=== PATIENT | female | born 1930 | race Caucasian/White ===

== ENCOUNTER 2018-04-17 18:17 | Emergency (ER) | payer MEDICARE ==
[~2018-04-17] VITALS: Ht 157.5 cm; Wt 52.0 kg
[2018-04-17] MEDS ORDERED: MELA3TAB66 PO (18:43)
[2018-04-17] MEDS ORDERED: LEVO25TA9 PO (18:43)
[2018-04-17] MEDS ORDERED: ALEN35TA32 PO (18:43)
[2018-04-17] MEDS ORDERED: ONDA4 PO (18:43)
[2018-04-17] MEDS ORDERED: VITAD1000 PO (18:43)
[2018-04-17] MEDS ORDERED: LOPE-162 PO (18:43)
[2018-04-17] MEDS ORDERED: RANI150T7 PO (18:43)
[2018-04-17] MEDS ORDERED: PERCT PO (18:43)
[2018-04-17] MEDS ORDERED: IBUP-2070 PO (18:43)
[2018-04-17] MEDS ORDERED: LORA0.5T2 PO (18:43)
[2018-04-17] MEDS ORDERED: DULO60CA44 PO (18:43)
[2018-04-17] MEDS ORDERED: DSS100 PO (18:43)
[2018-04-17 21:30] VITALS: BP 136/87
== END 2018-04-17 22:57 | disposition home or self-care (01) ==
LOC: EMS 18:19
DX: S09.90XA Unspecified injury of head, initial encounter (principal); M25.512 Pain in left shoulder; M54.9 Dorsalgia, unspecified; F41.9 Anxiety disorder, unspecified; F32.9 Major depressive disorder, single episode, unspecified; E03.9 Hypothyroidism, unspecified; Z79.1 Long term (current) use of non-steroidal anti-inflammatories (NSAID); Z79.899 Other long term (current) drug therapy; W18.09XA Striking against other object with subsequent fall, initial encounter; Y93.89 Activity, other specified; Y92.89 Other specified places as the place of occurrence of the external cause; Y99.8 Other external cause status
CPT/HCPCS: 70450

== ENCOUNTER 2018-05-03 19:29 | Emergency (ER) | payer MEDICARE ==
[~2018-05-03] VITALS: Ht 165.1 cm; Wt 52.7 kg
[~2018-05-03 19:29] MED LIST: ALEN35TA32 PO; DSS100 PO; DULO60CA44 PO; IBUP-2070 PO; LEVO25TA9 PO; LOPE-162 PO; LORA0.5T2 PO; MELA3TAB66 PO; ONDA4 PO; PERCT PO; RANI150T7 PO; VITAD1000 PO
[2018-05-03 21:00] VITALS: BP 157/81
== END 2018-05-03 21:12 | disposition home or self-care (01) ==
LOC: EMS 19:29
DX: S60.212A Contusion of left wrist, initial encounter (principal); S60.052A Contusion of left little finger without damage to nail, initial encounter; F03.90 Unspecified dementia, unspecified severity, without behavioral disturbance, psychotic disturbance, mood disturbance, and anxiety; F41.9 Anxiety disorder, unspecified; F32.9 Major depressive disorder, single episode, unspecified; E03.9 Hypothyroidism, unspecified; W19.XXXA Unspecified fall, initial encounter; Y93.89 Activity, other specified; Y92.89 Other specified places as the place of occurrence of the external cause; Y99.8 Other external cause status

== ENCOUNTER 2018-05-20 21:14 | Emergency (ER) | payer MEDICARE ==
[~2018-05-20] VITALS: Ht 152.4 cm; Wt 50.0 kg
[2018-05-20] MEDS ORDERED: IBUPROFEN 400 MG TABLET PO ONE (22:45)
[2018-05-22 15:55] VITALS: BP 164/107
== END 2018-05-21 01:52 | disposition home or self-care (01) ==
LOC: EMS 21:15
DX: S52.501A Unspecified fracture of the lower end of right radius, initial encounter for closed fracture (principal); S52.601A Unspecified fracture of lower end of right ulna, initial encounter for closed fracture; F03.90 Unspecified dementia, unspecified severity, without behavioral disturbance, psychotic disturbance, mood disturbance, and anxiety; E03.9 Hypothyroidism, unspecified; F41.9 Anxiety disorder, unspecified; F32.9 Major depressive disorder, single episode, unspecified; Z79.899 Other long term (current) drug therapy; W18.39XA Other fall on same level, initial encounter; Y93.89 Activity, other specified; Y92.89 Other specified places as the place of occurrence of the external cause; Y99.8 Other external cause status
CPT/HCPCS: 70450; 72125

== ENCOUNTER 2018-06-12 20:43 | Emergency (ER) | payer MEDICARE ==
[~2018-06-12] VITALS: Ht 154.9 cm; Wt 54.5 kg
[~2018-06-12 20:43] MED LIST changes: -DULO60CA44 PO; -LORA0.5T2 PO; -ONDA4 PO; -PERCT PO
[2018-06-12] MEDS ORDERED: LORA0.5T2 PO (20:59)
[2018-06-12] MEDS ORDERED: OS500 PO (20:59)
[2018-06-12] MEDS ORDERED: DULO60CA44 PO (20:59)
[2018-06-12 21:33] LABS: BASOPHILS % (AUTO) 0.9 % (0.0-2.0); EOSINOPHILS % (AUTO) 2.5 % (1.0-6.0); HEMATOCRIT 40.8 % (36-46); HEMOGLOBIN 13.7 g/dL (12.0-16.0); LYMPHOCYTES % (AUTO) 26.6 % (22.0-44.0); MEAN CORPUSCULAR HEMOGLOBIN 32.2 pg (26.0-34.0); MEAN CORPUSCULAR HGB CONC 33.6 G/dL (31.0-37.0); MEAN CORPUSCULAR VOLUME 96 fL (80-100); MONOCYTES % (AUTO) 13.7 % (2.0-9.0); NEUTROPHILS # (AUTO) 4.1 K/uL (1.8-7.7); NEUTROPHILS % (AUTO) 56.3 % (40.0-70.0); PLATELET COUNT (AUTO) 310 K/uL (150-450); RED BLOOD CELL COUNT(AUTO) 4.26 MIL/uL (4.00-5.20); RED CELL DISTRIBUTION WIDTH 13.7 % (11.5-14.5)
[2018-06-12 21:48] LABS: CALCIUM, TOTAL 10.7 mg/dL (8.8-10.5); CREATININE 0.92 mg/dL (0.60-1.30)
[2018-06-12 21:55] LABS: ALBUMIN 3.3 g/dL (3.4-5.0); BILIRUBIN,TOTAL 0.5 mg/dL (0.1-1.0); TOTAL PROTEIN, SERUM 6.5 g/dL (6.4-8.2)
[2018-06-12] MEDS ORDERED: CloNIDine HCL 0.1 MG TABLET PO ONE ×2 (22:15→23:00)
[2018-06-13 00:11] VITALS: BP 157/76
== END 2018-06-13 00:32 | disposition home or self-care (01) ==
LOC: EMS 20:44
DX: F03.90 Unspecified dementia, unspecified severity, without behavioral disturbance, psychotic disturbance, mood disturbance, and anxiety (principal); I10 Essential (primary) hypertension; F41.9 Anxiety disorder, unspecified; F32.9 Major depressive disorder, single episode, unspecified; E03.9 Hypothyroidism, unspecified; W19.XXXA Unspecified fall, initial encounter; Y93.89 Activity, other specified; Y92.89 Other specified places as the place of occurrence of the external cause; Y99.8 Other external cause status
CPT/HCPCS: 70450; 72125; 93005

== ENCOUNTER → 2018-06-24 | Outpatient (CLI) | payer MEDICARE ==
[~2018-06-24] VITALS: Ht 165.1 cm; Wt 52.0 kg
[~2018-06-24] MED LIST changes: +ASPI-1213 PO; +DULO60CA44 PO; -IBUP-2070 PO; +IPRA3AMP24 IH; +LORA0.5T2 PO; +OS500 PO; +PRED5TAB PO
[2018-06-24 11:38] VITALS: BP 165/63
== END | disposition home or self-care (01) ==
LOC: SRCNTR 11:17
PROVIDERS: ATTEND Internal Medicine
DX: J44.1 Chronic obstructive pulmonary disease with (acute) exacerbation (principal); J90 Pleural effusion, not elsewhere classified; I48.91 Unspecified atrial fibrillation; F03.90 Unspecified dementia, unspecified severity, without behavioral disturbance, psychotic disturbance, mood disturbance, and anxiety; R91.1 Solitary pulmonary nodule
CPT/HCPCS: G0463

== ENCOUNTER 2018-07-28 23:39 | Inpatient (IN) | payer MEDICARE, OTHER ==
[~2018-07-28] VITALS: Ht 157.5 cm; Wt 53.1 kg
[2018-07-29] MEDS ORDERED: ONDANSETRON HCL 4 MG/2 ML VIAL IM ONE (01:30)
[2018-07-29] MEDS ORDERED: MORPHINE SULFATE 4 MG/ML SYRINGE IM ONE (01:30)
[2018-07-29] MEDS ORDERED: MORPHINE SULFATE 4 MG/ML SYRINGE IVP ONE (04:15)
[2018-07-29 04:44] LABS: BASOPHILS % (AUTO) 0.3 % (0.0-2.0); EOSINOPHILS % (AUTO) 0.6 % (1.0-6.0); HEMATOCRIT 42.6 % (36-46); LYMPHOCYTES # (AUTO) 1.4 K/uL (1.0-4.8); LYMPHOCYTES % (AUTO) 11.4 % (22.0-44.0); MEAN CORPUSCULAR HEMOGLOBIN 31.2 pg (26.0-34.0); MEAN CORPUSCULAR HGB CONC 32.8 G/dL (31.0-37.0); MEAN CORPUSCULAR VOLUME 95 fL (80-100); MONOCYTES % (AUTO) 8.4 % (2.0-9.0); NEUTROPHILS # (AUTO) 9.7 K/uL (1.8-7.7); NEUTROPHILS % (AUTO) 79.3 % (40.0-70.0); PLATELET COUNT (AUTO) 286 K/uL (150-450); RED BLOOD CELL COUNT(AUTO) 4.48 MIL/uL (4.00-5.20); RED CELL DISTRIBUTION WIDTH 13.2 % (11.5-14.5)
[2018-07-29 04:54] LABS: PROTHROMBIN TIME 10.5 SEC (9.4-11.6)
[2018-07-29 04:55] LABS: ANION GAP 3 mmol/L (8-16); CALCIUM, TOTAL 10.1 mg/dL (8.8-10.5); CARBON DIOXIDE 32 mmol/L (22-29); CHLORIDE 104 mmol/L (98-107); CREATININE 0.87 mg/dL (0.60-1.30); GLUCOSE,RANDOM 107 mg/dL (70-110); POTASSIUM 3.6 mmol/L (3.5-5.1); SODIUM SERUM 139 mmol/L (136-145); UREA NITROGEN, BLOOD 15 mg/dL (7-18)
[2018-07-29 04:56] LABS: GLOMERULAR FILTR. RATE CALC > 60 mL/min (>60)
[2018-07-29 05:02] LABS: ALANINE AMINOTRANSFERASE 20 U/L (12-78); ALBUMIN 3.2 g/dL (3.4-5.0); ALKALINE PHOSPHATASE 87 U/L (46-116); ASPARTATE AMINOTRANSFERASE 20 U/L (15-37); BILIRUBIN,TOTAL 0.4 mg/dL (0.1-1.0); TOTAL PROTEIN, SERUM 5.9 g/dL (6.4-8.2)
[2018-07-29] MEDS ORDERED: ONDANSETRON HCL 4 MG/2 ML VIAL IVP PRN ×2 (05:30→09:45)
[2018-07-29] MEDS ORDERED: ACETAMINOPHEN 325 MG TABLET PO PRN ×2 (05:30→09:45)
[2018-07-29] MEDS ORDERED: MORPHINE SULFATE 2 MG/ML SYRINGE IVP PRN ×2 (05:30→09:45)
[2018-07-29] MEDS ORDERED: 0.9% SODIUM CHLORIDE 10 ML SYRINGE IVP PRN (05:30)
[2018-07-29] MEDS ORDERED: CloNIDine HCL 0.1 MG TABLET PO ONE (05:30)
[2018-07-29 06:35] VITALS: BP 129/61
[2018-07-29 07:53] VITALS: BP_SYST 144; BP_SYST 98; BP_DIAS 55; BP_DIAS 66
[2018-07-29] MEDS ORDERED: SODIUM CHLORIDE 0.9% 250 ML IV ONE (09:09)
[2018-07-29] MEDS ORDERED: MISC MED-CONVERTED FROM AMBULATORY (Ipratropium/Albuterol Sulfate (Duoneb 2.5-0.5 Mg/3 Ml IH PRN (09:45)
[2018-07-29] MEDS ORDERED: MAGNESIUM HYDROXIDE SUSPENSION 30 ML UDCUP PO PRN (09:45)
[2018-07-29] MEDS ORDERED: BISACODYL 10 MG RECTAL RECTAL SUPPOSITORY PR PRN (09:45)
[2018-07-29] MEDS ORDERED: ZOLPIDEM TARTRATE 5 MG TABLET PO PRN (09:45)
[2018-07-29] MEDS ORDERED: IPRATROPIUM BROMIDE 0.5 MG/2.5 ML NEB SOLUTION NEB PRN (10:45)
[2018-07-29] MEDS ORDERED: ALBUTEROL SULFATE 2.5 MG/0.5 ML NEB SOLUTION NEB PRN (10:45)
[2018-07-29 11:58] VITALS: BP 101/54
[2018-07-29] MEDS ORDERED: FentaNYL CITRATE-PF 100 MCG/2 ML VIAL IVP ONE (12:00)
[2018-07-29] MEDS ORDERED: 0.9% SODIUM CHLORIDE 10 ML VIAL IVP ONE (12:00)
[2018-07-29] MEDS ORDERED: PHENYLEPHRINE HCL 10 MG/ML VIAL IVP ONE (12:00)
[2018-07-29] MEDS ORDERED: SUCCINYLCHOLINE CHLORIDE 20 MG/ML 10 ML VIAL IVP ONE (12:00)
[2018-07-29] MEDS ORDERED: LIDOCAINE/PF 2% 5 ML VIAL INJ ONE (12:00)
[2018-07-29] MEDS ORDERED: PROPOFOL 1% 20 ML VIAL IVP ONE (12:00)
[2018-07-29] MEDS ORDERED: RINGERS SOLUTION,LACTATED 1,000 ML IV ONE ×2 (13:00)
[2018-07-29] MEDS ORDERED: BUPIVACAINE HCL/PF 0.5% 30 ML VIAL ONE (14:26)
[2018-07-29] MEDS ORDERED: MUPIROCIN CALCIUM 2% 22 GM OINTMENT ONE (15:06)
[2018-07-29] MEDS ORDERED: FentaNYL CITRATE-PF 100 MCG/2 ML VIAL IVP PRN (15:30)
[2018-07-29] MEDS ORDERED: HYDROmorphone 2 MG/ML SYRINGE ONE (15:51)
[2018-07-29] MEDS: HYDROmorphone 2 MG/ML SYRINGE IVP PRN ×2 (15:52→16:02)
[2018-07-29] MEDS ORDERED: HEPARIN SODIUM,PORCINE 5,000 UNITS/ML VIAL SQ SCH (16:00)
[2018-07-29 19:56] VITALS: BP 98/50
[2018-07-29] MEDS: CeFAZolin 1 GM/DEXTROSE 50 ML IV SCH (20:55)
[2018-07-29] MEDS: OXYGEN THERAPY IH SCH (20:55)
[2018-07-29] MEDS: RANITIDINE HCL 150 MG TABLET PO SCH (21:00)
[2018-07-29] MEDS: MELATONIN 3 MG TABLET PO SCH (21:00)
[2018-07-29] MEDS: DOCUSATE SODIUM 100 MG CAPSULE PO SCH (21:00)
[2018-07-30] VITALS (7 sets, daily range): BP systolic 105–118; BP diastolic 51–65
[2018-07-30] MEDS: CeFAZolin 1 GM/DEXTROSE 50 ML IV SCH (02:45)
[2018-07-30] MEDS: LEVOTHYROXINE SODIUM 25 MCG TABLET PO SCH (06:11)
[2018-07-30] MEDS: HYDROCODONE/ACETAMINOPHEN 5-325 MG TABLET PO PRN ×2 (08:37→18:25)
[2018-07-30] MEDS ORDERED: ENOXAPARIN SODIUM 30 MG/0.3 ML PF SYRINGE SQ SCH (09:00)
[2018-07-30] MEDS: OXYGEN THERAPY IH SCH ×2 (09:35→20:14)
[2018-07-30] MEDS: ASPIRIN 325 MG TABLET PO SCH (09:36)
[2018-07-30] MEDS: DULoxetine HCL 60 MG CAPSULE PO SCH (09:36)
[2018-07-30] MEDS: DOCUSATE SODIUM 100 MG CAPSULE PO SCH ×2 (09:36→20:11)
[2018-07-30] MEDS: CHOLECALCIFEROL (VIT D3) 1,000 UNITS TABLET PO SCH (09:37)
[2018-07-30] MEDS: RANITIDINE HCL 150 MG TABLET PO SCH ×2 (09:37→20:11)
[2018-07-30] MEDS: PANTOPRAZOLE SODIUM 40 MG DR TABLET PO SCH (09:37)
[2018-07-30] MEDS: CALCIUM OYSTER SHELL 500 MG TABLET PO SCH (09:37)
[2018-07-30 11:49] LABS: BASOPHILS % (AUTO) 0.4 % (0.0-2.0); EOSINOPHILS % (AUTO) 2.5 % (1.0-6.0); HEMATOCRIT 34.6 % (36-46); HEMOGLOBIN 11.3 g/dL (12.0-16.0); LYMPHOCYTES # (AUTO) 1.5 K/uL (1.0-4.8); LYMPHOCYTES % (AUTO) 12.6 % (22.0-44.0); MEAN CORPUSCULAR HGB CONC 32.7 G/dL (31.0-37.0); MEAN CORPUSCULAR VOLUME 95 fL (80-100); MONOCYTES # (AUTO) 1.2 K/uL (0.1-1.0); MONOCYTES % (AUTO) 10.1 % (2.0-9.0); NEUTROPHILS # (AUTO) 8.7 K/uL (1.8-7.7); NEUTROPHILS % (AUTO) 74.4 % (40.0-70.0); PLATELET COUNT (AUTO) 228 K/uL (150-450); RED BLOOD CELL COUNT(AUTO) 3.64 MIL/uL (4.00-5.20); RED CELL DISTRIBUTION WIDTH 13.1 % (11.5-14.5)
[2018-07-30] MEDS: APIXABAN 2.5 MG TABLET PO SCH (20:11)
[2018-07-30] MEDS: MELATONIN 3 MG TABLET PO SCH (20:11)
[2018-07-31] MEDS: HYDROCODONE/ACETAMINOPHEN 5-325 MG TABLET PO PRN (04:11)
[2018-07-31 04:13] VITALS: BP 106/60
[2018-07-31] MEDS: LEVOTHYROXINE SODIUM 25 MCG TABLET PO SCH (05:58)
[2018-07-31] MEDS: CHOLECALCIFEROL (VIT D3) 1,000 UNITS TABLET PO SCH (08:34)
[2018-07-31] MEDS: CALCIUM OYSTER SHELL 500 MG TABLET PO SCH (08:34)
[2018-07-31] MEDS: DOCUSATE SODIUM 100 MG CAPSULE PO SCH ×2 (08:34→20:32)
[2018-07-31] MEDS: RANITIDINE HCL 150 MG TABLET PO SCH ×2 (08:34→20:32)
[2018-07-31] MEDS: DULoxetine HCL 60 MG CAPSULE PO SCH (08:34)
[2018-07-31] MEDS: ASPIRIN 325 MG TABLET PO SCH (08:34)
[2018-07-31] MEDS: PANTOPRAZOLE SODIUM 40 MG DR TABLET PO SCH (08:34)
[2018-07-31] MEDS: APIXABAN 2.5 MG TABLET PO SCH ×2 (08:36→20:32)
[2018-07-31] MEDS: OXYGEN THERAPY IH SCH ×2 (08:36→20:33)
[2018-07-31 08:51] VITALS: BP 97/44
[2018-07-31] MEDS ORDERED: TraMADol HCL 50 MG TABLET PO PRN (12:00)
[2018-07-31 16:14] VITALS: BP 102/48
[2018-07-31] MEDS: MELATONIN 3 MG TABLET PO SCH (20:32)
[2018-07-31 20:37] VITALS: BP 110/58
[2018-07-31 23:50] VITALS: BP 122/65
[2018-08-01 04:56] VITALS: BP 119/58
[2018-08-01] MEDS: LEVOTHYROXINE SODIUM 25 MCG TABLET PO SCH (05:43)
[2018-08-01 07:16] VITALS: BP 117/53
[2018-08-01] MEDS: CHOLECALCIFEROL (VIT D3) 1,000 UNITS TABLET PO SCH (07:48)
[2018-08-01] MEDS: APIXABAN 2.5 MG TABLET PO SCH (07:48)
[2018-08-01] MEDS: PANTOPRAZOLE SODIUM 40 MG DR TABLET PO SCH (07:49)
[2018-08-01] MEDS: DOCUSATE SODIUM 100 MG CAPSULE PO SCH (07:49)
[2018-08-01] MEDS: RANITIDINE HCL 150 MG TABLET PO SCH (07:49)
[2018-08-01] MEDS: ASPIRIN 325 MG TABLET PO SCH (07:49)
[2018-08-01] MEDS: DULoxetine HCL 60 MG CAPSULE PO SCH (07:49)
[2018-08-01] MEDS: CALCIUM OYSTER SHELL 500 MG TABLET PO SCH (07:49)
[2018-08-01] MEDS: OXYGEN THERAPY IH SCH (07:55)
[2018-08-01] MEDS ORDERED: APIX2.5T PO (10:22)
[2018-08-01 11:19] VITALS: BP 113/59
== END 2018-08-01 14:25 | DRG 480 ==
LOC: EMS 23:39 → 5S 07-29 04:30
PROVIDERS: ADMIT Internal Medicine; ATTEND Internal Medicine
PROC: 0QS636Z Reposition Right Upper Femur with Intramedullary Internal Fixation Device, Percutaneous Approach (ICD-10-PCS; principal; 2018-07-29 14:00)
DX: S72.141A Displaced intertrochanteric fracture of right femur, initial encounter for closed fracture (principal); E43 Unspecified severe protein-calorie malnutrition; I48.92 Unspecified atrial flutter; M25.00 Hemarthrosis, unspecified joint; M81.0 Age-related osteoporosis without current pathological fracture; E03.9 Hypothyroidism, unspecified; F03.90 Unspecified dementia, unspecified severity, without behavioral disturbance, psychotic disturbance, mood disturbance, and anxiety; E55.9 Vitamin D deficiency, unspecified; J45.909 Unspecified asthma, uncomplicated; D72.829 Elevated white blood cell count, unspecified; Y93.01 Activity, walking, marching and hiking; W01.0XXA Fall on same level from slipping, tripping and stumbling without subsequent striking against object, initial encounter; F41.9 Anxiety disorder, unspecified; F32.9 Major depressive disorder, single episode, unspecified; Z79.82 Long term (current) use of aspirin; Z79.899 Other long term (current) drug therapy; Z68.21 Body mass index [BMI] 21.0-21.9, adult
CPT/HCPCS: 51702; 70450; 72125; 72131; 73502; 73700; 87081; 93005; 93306; 96372; 96374; 97162; 97167; 97530; 97535; G0378; J0330; J0690; J1170; J1650; J2270; J2370; J2405; J2704; J3010; J3490; J7050; J7120

== ENCOUNTER → 2018-07-28 | Outpatient (CLI) | payer MEDICARE, OTHER ==
[~2018-07-28] VITALS: Ht 165.1 cm; Wt 53.0 kg
[2018-07-28 11:10] VITALS: BP 148/70
== END | disposition home or self-care (01) ==
LOC: SRCNTR 10:31
PROVIDERS: ATTEND Internal Medicine
DX: J44.9 Chronic obstructive pulmonary disease, unspecified (principal); I48.91 Unspecified atrial fibrillation
CPT/HCPCS: G0463

== ENCOUNTER 2018-08-27 23:00 | Emergency (ER) | payer MEDICARE, OTHER ==
[~2018-08-27] VITALS: Ht 154.9 cm; Wt 55.2 kg
[~2018-08-27 23:00] MED LIST changes: +APIX2.5T PO; -PRED5TAB PO
[2018-08-28 02:04] LABS: BASOPHILS % (AUTO) 0.7 % (0.0-2.0); EOSINOPHILS % (AUTO) 4.8 % (1.0-6.0); HEMOGLOBIN 13.1 g/dL (12.0-16.0); LYMPHOCYTES # (AUTO) 1.8 K/uL (1.0-4.8); LYMPHOCYTES % (AUTO) 22.4 % (22.0-44.0); MEAN CORPUSCULAR HEMOGLOBIN 30.3 pg (26.0-34.0); MEAN CORPUSCULAR HGB CONC 32.8 G/dL (31.0-37.0); MEAN CORPUSCULAR VOLUME 92 fL (80-100); MONOCYTES # (AUTO) 0.9 K/uL (0.1-1.0); MONOCYTES % (AUTO) 10.7 % (2.0-9.0); NEUTROPHILS # (AUTO) 5.1 K/uL (1.8-7.7); NEUTROPHILS % (AUTO) 61.4 % (40.0-70.0); PLATELET COUNT (AUTO) 430 K/uL (150-450); RED BLOOD CELL COUNT(AUTO) 4.34 MIL/uL (4.00-5.20); RED CELL DISTRIBUTION WIDTH 13.9 % (11.5-14.5)
[2018-08-28 02:16] LABS: ANION GAP 7 mmol/L (8-16); CALCIUM, TOTAL 10.4 mg/dL (8.8-10.5); CARBON DIOXIDE 27 mmol/L (22-29); CHLORIDE 107 mmol/L (98-107); CREATININE 0.81 mg/dL (0.60-1.30); GLUCOSE,RANDOM 101 mg/dL (70-110); INR 1.1 (0.9-1.1); POTASSIUM 3.7 mmol/L (3.5-5.1); PROTHROMBIN TIME 11.4 SEC (9.4-11.6); SODIUM SERUM 141 mmol/L (136-145); UREA NITROGEN, BLOOD 19 mg/dL (7-18)
[2018-08-28 02:17] LABS: GLOMERULAR FILTR. RATE CALC > 60 mL/min (>60)
[2018-08-28 02:22] LABS: ALANINE AMINOTRANSFERASE 15 U/L (12-78); ALKALINE PHOSPHATASE 134 U/L (46-116); ASPARTATE AMINOTRANSFERASE 16 U/L (15-37); BILIRUBIN,TOTAL 0.5 mg/dL (0.1-1.0); TOTAL PROTEIN, SERUM 6.3 g/dL (6.4-8.2)
[2018-08-28 04:13] LABS: APPEARANCE,URINE CLEAR (CLEAR); BILIRUBIN,URINE NEGATIVE (NEGATIVE); GLUCOSE, URINE (UA) NEGATIVE (NEGATIVE); KETONES,URINE NEGATIVE (NEGATIVE); LEUKOCYTE ESTERASE ,URINE NEGATIVE (NEGATIVE); NITRATE,URINE NEGATIVE (NEGATIVE); OCCULT BLOOD,URINE SMALL (NEGATIVE); PROTEIN,URINE NEGATIVE (NEGATIVE); UROBILINOGEN,URINE 0.2 mg/dL (<=1.0)
[2018-08-28 04:20] LABS: BACTERIA,URINE None Seen /HPF (None Seen); SQUAMOUS EPITHELIAL CELL,UR Rare /LPF (None Seen); WBC,URINE 0-2 /HPF (0-5)
[2018-08-28 05:23] VITALS: BP 170/80
[2018-08-29] MEDS ORDERED: GUAI100S97 PO (07:47)
[2018-08-29] MEDS ORDERED: CALC-26 PO (07:47)
== END 2018-08-28 06:02 | disposition home or self-care (01) ==
LOC: EMS 23:01
DX: M54.5 Low back pain (principal); J44.9 Chronic obstructive pulmonary disease, unspecified; E03.9 Hypothyroidism, unspecified; K21.9 Gastro-esophageal reflux disease without esophagitis; F41.9 Anxiety disorder, unspecified; I48.91 Unspecified atrial fibrillation; W18.39XA Other fall on same level, initial encounter; Y93.89 Activity, other specified; Y92.89 Other specified places as the place of occurrence of the external cause; Y99.8 Other external cause status
CPT/HCPCS: 70450; 72125; 72128; 72131; 93005

== ENCOUNTER 2018-08-28 17:46 | Emergency (ER) | payer MEDICARE, OTHER ==
[~2018-08-28] VITALS: Ht 162.6 cm; Wt 59.1 kg
[2018-08-28 18:10] VITALS: BP 119/64
[2018-08-29] MEDS ORDERED: CALC-26 PO (07:47)
[2018-08-29] MEDS ORDERED: GUAI100S97 PO (07:47)
== END 2018-08-28 18:50 | disposition home or self-care (01) ==
LOC: EMS 17:47
DX: Z45.2 Encounter for adjustment and management of vascular access device (principal); K21.9 Gastro-esophageal reflux disease without esophagitis; E03.9 Hypothyroidism, unspecified; I48.91 Unspecified atrial fibrillation; F41.9 Anxiety disorder, unspecified; J44.9 Chronic obstructive pulmonary disease, unspecified; F32.9 Major depressive disorder, single episode, unspecified; Z79.82 Long term (current) use of aspirin; Z79.899 Other long term (current) drug therapy

== ENCOUNTER → 2018-09-08 | Outpatient (CLI) | payer MEDICARE, OTHER ==
[~2018-09-08] MED LIST changes: -ASPI-1213 PO; +CALC-26 PO; -IPRA3AMP24 IH; -LEVO25TA9 PO; -LOPE-162 PO; -LORA0.5T2 PO; -MELA3TAB66 PO; -RANI150T7 PO; -VITAD1000 PO
== END | disposition home or self-care (01) ==
LOC: RADPV 14:51
PROVIDERS: ATTEND Orthopaedic Surgery
DX: S72.001D Fracture of unspecified part of neck of right femur, subsequent encounter for closed fracture with routine healing (principal); X58.XXXD Exposure to other specified factors, subsequent encounter
CPT/HCPCS: 73502

== ENCOUNTER → 2019-05-27 | Outpatient (CLI) | payer MEDICARE, OTHER ==
[~2019-05-27] MED LIST changes: +ALEN35TA23 PO; -ALEN35TA32 PO
== END | disposition home or self-care (01) ==
LOC: RADPV 11:10
PROVIDERS: ATTEND Orthopaedic Surgery
DX: S72.91XA Unspecified fracture of right femur, initial encounter for closed fracture (principal); X58.XXXA Exposure to other specified factors, initial encounter; Y93.89 Activity, other specified; Y92.89 Other specified places as the place of occurrence of the external cause; Y99.8 Other external cause status
CPT/HCPCS: 73502